=== PATIENT | male | born 1955 | race Caucasian/White ===

== ENCOUNTER 2018-12-14 01:37 | Emergency (ER) | payer BC ==
[~2018-12-14] VITALS: Ht 172.7 cm; Wt 76.7 kg
[2018-12-14] MEDS ORDERED: FLOMAX0.4 MG PO (03:08)
[2018-12-14] MEDS ORDERED: NORCO 5-325 TA1 EACH PO (03:08)
== END 2018-12-14 04:09 | disposition home or self-care (01) ==
LOC: ED 01:37
DX: N13.2 Hydronephrosis with renal and ureteral calculous obstruction (principal); I10 Essential (primary) hypertension; Z88.0 Allergy status to penicillin
CPT/HCPCS: 74176; 80053; 81001; 85025; 96374; 96375; 99284-25; J1170; J1885; J2405